=== PATIENT | female | born 1995 | race Caucasian/White ===

== ENCOUNTER → 2022-05-01 | Outpatient (CLI) | payer OTHER, SELFPAY ==
[2022-05-01 10:33] LABS: Absolute Lymphocyte Count 2.46 X10^3/uL (0.83-4.51); Absolute Neutrophil Count 5.4 X10^3/uL (2.0-7.7); Basophil# 0.05 X10^3/uL; Basophil% 0.6 % (0-1); Eosinophil# 0.09 X10^3/uL; Hematocrit 37.2 % (37-47); Hemoglobin 13.1 g/dL (12.0-15.0); Lymphocyte # 2.46 X10^3/ul (0.83-4.51); Lymphocyte % 28.5 % (19-41); Mean Corp Hgb Conc 35.2 g/dL (32-36); Mean Corpuscular Hgb 30.6 pg (27.0-32.0); Mean Corpuscular Volume 86.9 fL (81-99); Monocyte# 0.55 X10^3/uL; Monocyte% 6.4 % (0-10); NRBC Flagged by Analyzer 0 % (0-5); Neutrophil # 5.42 X10^3/uL (2.7-7.7); Neutrophil % 62.8 % (47-70); Platelet Count 244 K/mm3 (150-450); RBC Distribution Width SD 40.2 fl (35.1-43.9); Red Blood Count 4.28 M/mm3 (4.2-5.4); White Blood Count 8.6 K/mm3 (4.4-11.0)
[2022-05-01 11:27] LABS: HIV - WCH Non-Reactive (Nonreactive); Hepatitis B Surface Antigen Non-Reactive (Nonreactive); Hepatitis C Antibody Non-Reactive (Nonreactive); Rubella IgG Reactive (Nonreactive); Syphilis Antibodies Non-reactive
[2022-05-03 09:12] LABS: V-Zoster IgG (Immunity) 534 index (Immune >165)
[2022-05-04 00:07] LABS: Chlamydia By Nucleic Acid AMP Negative (Negative)
[2022-05-04 14:20] LABS: Gonococcus By Nucleic Acid AMP Negative (Negative)
== END | disposition home or self-care (01) ==
LOC: WOBLAB 09:54
PROVIDERS: Visit Provider Obstetrics & Gynecology
DX: Z34.82 Encounter for supervision of other normal pregnancy, second trimester (principal)
CPT/HCPCS: 36415; 85025; 86703; 86762; 86780; 86787; 86803; 87086; 87088; 87340; 87491; 87591

== ENCOUNTER 2022-06-28 21:30 | Outpatient (CLI) | payer OTHER, SELFPAY ==
[2022-06-28 21:44] VITALS: TEMP 36.3
[2022-06-28 21:46] VITALS: BP 107/63; PULSE 110
[2022-06-28 21:47] VITALS: PULSE 104; PULSE 113; O2SAT 92; O2SAT 95
[2022-06-28 22:16] VITALS: BMI 24.5
--- NOTE | 2022-06-28 22:20 | PCM.HP.BLA ---
History and Physical Date of Admission: 06/28/22 Chief complaint: Vaginal bleeding History present illness: 27-year-old G2, P1 at 28 weeks and 0 days with KATHY 09/20/2022 arrives with vaginal bleeding at home. Bleeding started with spotting and mucus discharge. denies headache, visual change, chest pain, shortness of breath, nausea vomit, right upper quadrant pain. Patient states good movement. 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 Obstetric history: G1: 40-week complicated by primary ciliary dyskinesia G2: Current Past medical history: None Medications: vitamin Past surgical history: None Allergies: No known drug allergies Family history: Denies history DVT or PE Social history: Denies smoking, alcohol use, drug use Review of systems: Besides above pertinent positives a full review of systems was performed and found to be negative Physical exam: Vitals: Blood pressure 114/64 General: Normal-appearing no acute distress HEENT: Normocephalic/atraumatic no cervical adenopathy Cardiac/respiratory: No use of accessory muscles, nonlabored breathing Abdomen: Soft, nontender, gravid Extremities: No peripheral edema normal peripheral pulses Psych: Normal affect and demeanor nonpressured speech Bedside ultrasound: Breech, RUMA subjectively within normal limits. Placenta posterior fundal Assessment and plan: 27-year-old G2, P1 at 28 weeks and 0 days arrives with vaginal bleeding at home. Per nursing cervical exam close to 1 cm. To monitor overnight. Celestone given. We will continue to evaluate overnight
[2022-06-28] MEDS: Betamethasone/Betamethasone 30 MG/5 ML Vial 12 MG IM (22:49)
[2022-06-29] VITALS (18 sets, daily range): BP systolic 103–114; BP diastolic 54–64; PULSE 94–133; RESP 18; TEMP 36–36.7; O2SAT 93–97
--- NOTE | 2022-06-29 07:29 | PCM.PN.OB ---
Subjective Subjective Patient feels minor contractions. Feels vaginal bleeding is persistent. Otherwise asymptomatic Objective Data Objective Data Vital Signs: Vital Signs Temp Pulse BP Pulse Ox 98.0 F 102 H 114/64 95 06/29/22 07:21 06/29/22 07:21 06/29/22 07:21 06/28/22 21:47 Weight: 130 lb Body Mass Index (BMI) 24.5 Physical Exam Const alert, oriented x3, no apparent distress, average body habitus, healthy appearing and well nourished HEENT normocephalic and moist oral mucous membranes Eyes PERRL Neck full ROM Resp normal respiratory effort, no retractions and no use of accessory muscles GI GI Narrative: Soft, nontender, gravid Narrative: Cervical exam: /-. Bedside ultrasound breech, posterior fundal placenta. RUMA subjectively within normal limits Extremity normal to inspection, full ROM and no clubbing, cyanosis or edema Neuro moves all extremities, no focal motor deficits and no sensory deficits noted Psych mental status grossly normal, affect normal, speech normal and activity/motor behavior normal Assessment & Plan (1) : PLAN: Patient seen and examined. Bedside ultrasound reassuring. Cervical exam with signs of labor. Educated patient on labor and delivery. Status post Celestone. With vaginal bleeding will give RhoGAM now with Rh- status. Called [facility] for transport, patient for transport to [facility]. To start magnesium for neuro protection. Procardia 10 mg every 10 minutes x3 doses per [facility]. Discussed plan with [facility] portal architect.
[2022-06-29] MEDS: NIFEdipine 10 MG Capsule PO ×3 (07:39→08:01)
[2022-06-29] MEDS: Lactated Ringers 1,000 ML 100 ML IV (07:50)
[2022-06-29] MEDS: Magnesium Sulfate 4gm/100mL 4 GM/100 ML IV.SOLN. IV (07:50)
[2022-06-29] MEDS: Magnesium Sulfate 4gm/100mL 2 GM/50 ML IV.SOLN. IV (08:08)
[2022-06-29] MEDS: Magnesium Sulfate 20 GM/500 ML BAG 50 GM CONT INF (08:18)
== END 2022-06-29 09:00 | disposition home or self-care (01) ==
LOC: WPOUT 21:36 → WP 21:37
PROVIDERS: Visit Provider Obstetrics & Gynecology
DX: O46.93 Antepartum hemorrhage, unspecified, third trimester (principal); Z3A.28 28 weeks gestation of pregnancy
CPT/HCPCS: 96365; 96367; 36415; 59025; 59050; 76815; 85461; 96372; J7120; J0702